=== PATIENT | female | born 1945 | race Asian ===

== ENCOUNTER 2017-05-27 03:10 | Emergency (ER) | payer OTHER ==
[~2017-05-27] VITALS: Ht 152.4 cm; Wt 47.8 kg
[~2017-05-27 03:10] MED LIST: AMLO-512 PO; ATEN100T PO; GLIP5TAB3; HYDR25TA PO; LISI40TA4 PO; METF-515 PO; MULT1TAB70 PO; NYST5S PO
[2017-05-27] MEDS ORDERED: MECL-129 PO (03:24)
[2017-05-27] MEDS ORDERED: LORazepam 2 MG/ML VIAL IVP ONE (03:30)
[2017-05-27] MEDS ORDERED: SODIUM CHLORIDE 0.9% 1,000 ML IV ONE (03:30)
[2017-05-27 04:39] LABS: BASOPHILS % (AUTO) 0.4 % (0.0-2.0); EOSINOPHILS % (AUTO) 1.5 % (1.0-6.0); HEMATOCRIT 37.1 % (36-46); HEMOGLOBIN 12.5 g/dL (12.0-16.0); LYMPHOCYTES # (AUTO) 1.9 K/uL (1.0-4.8); LYMPHOCYTES % (AUTO) 13.1 % (22.0-44.0); MEAN CORPUSCULAR HEMOGLOBIN 28.4 pg (26.0-34.0); MEAN CORPUSCULAR HGB CONC 33.7 G/dL (31.0-37.0); MEAN CORPUSCULAR VOLUME 84 fL (80-100); MONOCYTES # (AUTO) 0.6 K/uL (0.1-1.0); MONOCYTES % (AUTO) 4.1 % (2.0-9.0); NEUTROPHILS # (AUTO) 11.7 K/uL (1.8-7.7); NEUTROPHILS % (AUTO) 80.9 % (40.0-70.0); PLATELET COUNT (AUTO) 249 K/uL (150-450); RED BLOOD CELL COUNT(AUTO) 4.41 MIL/uL (4.00-5.20); RED CELL DISTRIBUTION WIDTH 13.1 % (11.5-14.5)
[2017-05-27 05:00] LABS: CALCIUM, TOTAL 9.4 mg/dL (8.8-10.5); CREATININE 1.49 mg/dL (0.60-1.30); POTASSIUM 3.7 mmol/L (3.5-5.1)
[2017-05-27 06:02] VITALS: BP 144/71
== END 2017-05-27 06:11 | disposition home or self-care (01) ==
LOC: EMS 03:11
DX: H81.399 Other peripheral vertigo, unspecified ear (principal); E11.9 Type 2 diabetes mellitus without complications; E78.00 Pure hypercholesterolemia, unspecified; I10 Essential (primary) hypertension; R11.2 Nausea with vomiting, unspecified; Z79.84 Long term (current) use of oral hypoglycemic drugs
CPT/HCPCS: 36415; 80048; 85025; 96361; 96374; 99284; J2060; J7030

== ENCOUNTER 2021-10-07 21:09 | Inpatient (IN) | payer MEDICARE, OTHER ==
[~2021-10-07] VITALS: Ht 152.4 cm; Wt 63.5 kg
[~2021-10-07 21:09] MED LIST changes: +AMLO-258 PO; -AMLO-512 PO; -ATEN100T PO; +ATEN100T92 PO; -HYDR25TA PO; +HYDR25TA2 PO; -LISI40TA4 PO; +LISI40TA9 PO; +MECL-129 PO; -NYST5S PO
[2021-10-07] MEDS ORDERED: LABETALOL HCL 5 MG/ML 20 ML VIAL IVP ONE ×2 (21:30→22:45)
[2021-10-07 21:36] LABS: GLUCOMETER DEV NAME(LOC) ERT.5; GLUCOSE,POINT OF CARE 117 MG/DL (70-110)
[2021-10-07 21:41] LABS: BASOPHILS % (AUTO) 0.4 % (0.0-2.0); EOSINOPHILS % (AUTO) 0.9 % (1.0-6.0); HEMATOCRIT 37.6 % (36-46); HEMOGLOBIN 12.8 g/dL (12.0-16.0); LYMPHOCYTES # (AUTO) 2.3 K/uL (1.0-4.8); LYMPHOCYTES % (AUTO) 24.6 % (22.0-44.0); MEAN CORPUSCULAR HEMOGLOBIN 28.8 pg (26.0-34.0); MEAN CORPUSCULAR HGB CONC 34.1 G/dL (31.0-37.0); MEAN CORPUSCULAR VOLUME 85 fL (80-100); MONOCYTES # (AUTO) 0.5 K/uL (0.1-1.0); MONOCYTES % (AUTO) 5.1 % (2.0-9.0); NEUTROPHILS # (AUTO) 6.5 K/uL (1.8-7.7); PLATELET COUNT (AUTO) 266 K/uL (150-450); RED BLOOD CELL COUNT(AUTO) 4.45 MIL/uL (4.00-5.20); RED CELL DISTRIBUTION WIDTH 12.9 % (11.5-14.5)
[2021-10-07 21:49] LABS: CALCIUM, TOTAL 9.5 mg/dL (8.8-10.5); CREATININE 2.09 mg/dL (0.60-1.30); POTASSIUM 3.7 mmol/L (3.5-5.1)
[2021-10-07 21:52] LABS: PROTHROMBIN TIME 10.8 SEC (9.4-11.6)
[2021-10-07 22:15] LABS: ALBUMIN 3.7 g/dL (3.4-5.0); BILIRUBIN,TOTAL 0.3 mg/dL (0.1-1.0); TOTAL PROTEIN, SERUM 8.1 g/dL (6.4-8.2)
[2021-10-07] MEDS ORDERED: SODIUM CHLORIDE 0.9% 500 ML IV ONE (23:00)
[2021-10-08 00:56] LABS: APPEARANCE,URINE CLEAR (CLEAR); BILIRUBIN,URINE NEGATIVE (NEGATIVE); GLUCOSE, URINE (UA) NEGATIVE (NEGATIVE); KETONES,URINE NEGATIVE (NEGATIVE); LEUKOCYTE ESTERASE ,URINE TRACE (NEGATIVE); NITRATE,URINE NEGATIVE (NEGATIVE); OCCULT BLOOD,URINE TRACE (NEGATIVE); PROTEIN,URINE 300-600,SEE CONFIRM mg/dL (NEGATIVE); SPECIFIC GRAVITIY, URINE 1.011 (1.003-1.030); UROBILINOGEN,URINE <=1.0 mg/dL (<=1.0)
[2021-10-08 01:07] LABS: SULFOSALICYLIC ACID,URINE 4+ (Negative)
[2021-10-08 01:08] LABS: BACTERIA,URINE Many /HPF (None Seen); RBC,URINE 0-2 /HPF (0-2); SQUAMOUS EPITHELIAL CELL,UR Few /LPF (None Seen)
[2021-10-08] MEDS ORDERED: ACETAMINOPHEN 325 MG TABLET PO ONE (01:30)
[2021-10-08] MEDS ORDERED: LABETALOL HCL 5 MG/ML 20 ML VIAL IVP ONE (01:30)
[2021-10-08] MEDS ORDERED: ATENOLOL 50 MG TABLET PO ONE (03:00)
[2021-10-08] MEDS ORDERED: METOCLOPRAMIDE HCL 5 MG/ML 2 ML VIAL IVP PRN (04:30)
[2021-10-08] MEDS ORDERED: ONDANSETRON HCL 4 MG/2 ML VIAL IVP PRN (04:30)
[2021-10-08] MEDS ORDERED: NiCARDipine HCL 25 MG in SODIUM CHLORIDE 0.9% 240 ML IV PRN (04:30)
[2021-10-08] MEDS ORDERED: DEXTROSE 50%-WATER 25 GM/50 ML SYRINGE IVP PRN (04:30)
[2021-10-08 04:38] LABS: CREATININE,URINE RANDOM 67.5 mg/dL (30.0-125.0)
[2021-10-08] MEDS ORDERED: MECLIZINE HCL 25 MG TABLET PO PRN (05:00)
[2021-10-08 05:13] LABS: COVID AG,FIA SOURCE NASAL SWAB
[2021-10-08] MEDS: INSULIN LISPRO 100 UNITS/ML SQ PRN ×3 (06:14→20:58)
[2021-10-08 07:21] LABS: GLUCOSE,POINT OF CARE 161 MG/DL (70-110)
[2021-10-08 08:00] VITALS: BP 157/90
[2021-10-08] MEDS ORDERED: ATENOLOL 100 MG TABLET PO SCH (10:00)
[2021-10-08] MEDS: AmLODIPine BESYLATE 10 MG TABLET PO SCH (10:22)
[2021-10-08] MEDS: HEPARIN SODIUM,PORCINE 5,000 UNITS/ML VIAL SQ SCH ×3 (10:22→23:57)
[2021-10-08] MEDS ORDERED: MULT-660 PO (11:32)
[2021-10-08] MEDS ORDERED: INSU300I SQ (11:32)
[2021-10-08] MEDS ORDERED: OLME40TA18 PO (11:32)
[2021-10-08] MEDS ORDERED: ASPI-1444 PO (11:32)
[2021-10-08] MEDS ORDERED: LIRA0.6P2 SQ (11:32)
[2021-10-08] MEDS ORDERED: GABA-529 PO (11:32)
[2021-10-08] MEDS ORDERED: MECL-160 PO (11:32)
[2021-10-08] MEDS ORDERED: PRAV40TA4 PO (11:32)
[2021-10-08 12:00] VITALS: BP 163/108
[2021-10-08 12:06] LABS: CREATININE 1.84 mg/dL (0.60-1.30); POTASSIUM 4.1 mmol/L (3.5-5.1)
[2021-10-08 12:16] LABS: GLUCOSE,POINT OF CARE 227 MG/DL (70-110)
[2021-10-08 16:00] VITALS: BP 118/71
[2021-10-08 19:01] LABS: GLUCOSE,POINT OF CARE 139 MG/DL (70-110)
[2021-10-08 20:00] VITALS: BP 132/66
[2021-10-08 22:10] VITALS: BP 157/89
[2021-10-09 00:11] VITALS: BP 138/64
[2021-10-09 04:16] LABS: GLUCOSE,POINT OF CARE 249 MG/DL (70-110)
[2021-10-09 05:22] VITALS: BP 150/65
[2021-10-09 05:52] LABS: BASOPHILS % (AUTO) 0.8 % (0.0-2.0); EOSINOPHILS % (AUTO) 1.2 % (1.0-6.0); HEMOGLOBIN 12.8 g/dL (12.0-16.0); LYMPHOCYTES # (AUTO) 2.9 K/uL (1.0-4.8); LYMPHOCYTES % (AUTO) 29.1 % (22.0-44.0); MEAN CORPUSCULAR HEMOGLOBIN 28.9 pg (26.0-34.0); MEAN CORPUSCULAR HGB CONC 34.7 G/dL (31.0-37.0); MEAN CORPUSCULAR VOLUME 83 fL (80-100); MONOCYTES # (AUTO) 0.6 K/uL (0.1-1.0); MONOCYTES % (AUTO) 5.9 % (2.0-9.0); NEUTROPHILS # (AUTO) 6.3 K/uL (1.8-7.7); PLATELET COUNT (AUTO) 256 K/uL (150-450); RED BLOOD CELL COUNT(AUTO) 4.44 MIL/uL (4.00-5.20)
[2021-10-09 06:09] LABS: CREATININE 1.87 mg/dL (0.60-1.30); MAGNESIUM 1.4 mg/dL (1.80-2.40); POTASSIUM 3.7 mmol/L (3.5-5.1)
[2021-10-09 07:24] VITALS: BP 139/75
[2021-10-09] MEDS: HEPARIN SODIUM,PORCINE 5,000 UNITS/ML VIAL SQ SCH ×2 (08:06→16:30)
[2021-10-09] MEDS: AmLODIPine BESYLATE 10 MG TABLET PO SCH (08:07)
[2021-10-09] MEDS: ACETAMINOPHEN 325 MG TABLET PO PRN ×2 (08:14→14:49)
[2021-10-09 08:41] LABS: GLUCOMETER DEV NAME(LOC) 5N.3; GLUCOSE,POINT OF CARE 115 MG/DL (70-110)
[2021-10-09] MEDS ORDERED: ATENOLOL 100 MG TABLET PO SCH (09:00)
[2021-10-09 11:22] VITALS: BP 123/82
[2021-10-09] MEDS ORDERED: MAGNESIUM SULFATE 2 GM/WATER 50 ML IV ONE (11:30)
[2021-10-09] MEDS: INSULIN LISPRO 100 UNITS/ML SQ PRN (11:39)
[2021-10-09 12:11] LABS: GLUCOMETER DEV NAME(LOC) 5N.1C; GLUCOSE,POINT OF CARE 245 MG/DL (70-110)
[2021-10-09] MEDS ORDERED: SODIUM CHLORIDE 0.9% 100 ML ONE (12:33)
[2021-10-09] MEDS ORDERED: ATEN100T92 PO (14:47)
[2021-10-09] MEDS ORDERED: AMLO-258 PO (14:47)
[2021-10-09 16:14] VITALS: BP 145/59
== END 2021-10-09 16:45 | disposition home or self-care (01) | DRG 305 ==
LOC: EMS 21:09 → ICU 10-08 05:45 → 5S 10-08 22:00
PROVIDERS: ADMIT Internal Medicine; ATTEND Internal Medicine
DX: I16.1 Hypertensive emergency (principal); N17.9 Acute kidney failure, unspecified; E87.1 Hypo-osmolality and hyponatremia; N25.81 Secondary hyperparathyroidism of renal origin; I12.9 Hypertensive chronic kidney disease with stage 1 through stage 4 chronic kidney disease, or unspecified chronic kidney disease; E11.22 Type 2 diabetes mellitus with diabetic chronic kidney disease; E11.65 Type 2 diabetes mellitus with hyperglycemia; E83.42 Hypomagnesemia; E78.00 Pure hypercholesterolemia, unspecified; E87.5 Hyperkalemia; Z20.822 Contact with and (suspected) exposure to COVID-19; N18.30 Chronic kidney disease, stage 3 unspecified; Z79.899 Other long term (current) drug therapy; Z83.3 Family history of diabetes mellitus; Z87.19 Personal history of other diseases of the digestive system
CPT/HCPCS: 70450; 70551; 71045; 80048; 80053; 81001; 81002; 82550; 82570; 82962; 83735; 84300; 84484; 85025; 85610; 85730; 87081; 87086; 93005; 93306; 99285; J1644; J3475; J3490; J7040; J7050; 36415-L1; 36415-TC; 87077

== ENCOUNTER 2021-10-13 18:03 | Emergency (ER) | payer MEDICARE, OTHER ==
[~2021-10-13] VITALS: Ht 152.4 cm; Wt 63.0 kg
[~2021-10-13 18:03] MED LIST changes: +ASPI-1444 PO; +GABA-529 PO; -GLIP5TAB3; -HYDR25TA2 PO; +INSU300I SQ; +LIRA0.6P2 SQ; -LISI40TA9 PO; -MECL-129 PO; +MECL-160 PO; -METF-515 PO; +MULT-660 PO; -MULT1TAB70 PO; +OLME40TA18 PO; +PRAV40TA4 PO
[2021-10-13] MEDS ORDERED: 0.9% SODIUM CHLORIDE 10 ML SYRINGE IVP PRN (18:45)
[2021-10-13] MEDS ORDERED: ACETAMINOPHEN 500 MG TABLET PO ONE (19:15)
[2021-10-13] MEDS ORDERED: CefTRIAXone 1 GM/DEXTROSE 50 ML IV ONE (19:15)
[2021-10-13 19:32] LABS: APPEARANCE,URINE CLEAR (CLEAR); BILIRUBIN,URINE NEGATIVE (NEGATIVE); GLUCOSE, URINE (UA) NEGATIVE (NEGATIVE); KETONES,URINE NEGATIVE (NEGATIVE); LEUKOCYTE ESTERASE ,URINE MODERATE (NEGATIVE); NITRATE,URINE NEGATIVE (NEGATIVE); OCCULT BLOOD,URINE TRACE (NEGATIVE); PROTEIN,URINE 300-600,SEE CONFIRM mg/dL (NEGATIVE); SPECIFIC GRAVITIY, URINE 1.011 (1.003-1.030); UROBILINOGEN,URINE <=1.0 mg/dL (<=1.0)
[2021-10-13 19:59] LABS: COVID AG,FIA SOURCE NASAL SWAB
[2021-10-13 20:06] LABS: BASOPHILS % (AUTO) 0.4 % (0.0-2.0); EOSINOPHILS % (AUTO) 0.2 % (1.0-6.0); HEMATOCRIT 34.3 % (36-46); HEMOGLOBIN 11.7 g/dL (12.0-16.0); LYMPHOCYTES # (AUTO) 1.9 K/uL (1.0-4.8); MEAN CORPUSCULAR HEMOGLOBIN 28.6 pg (26.0-34.0); MEAN CORPUSCULAR HGB CONC 34.1 G/dL (31.0-37.0); MEAN CORPUSCULAR VOLUME 84 fL (80-100); MONOCYTES # (AUTO) 0.9 K/uL (0.1-1.0); NEUTROPHILS # (AUTO) 12.7 K/uL (1.8-7.7); NEUTROPHILS % (AUTO) 81.4 % (40.0-70.0); PLATELET COUNT (AUTO) 280 K/uL (150-450); RED CELL DISTRIBUTION WIDTH 12.9 % (11.5-14.5)
[2021-10-13 20:15] LABS: SULFOSALICYLIC ACID,URINE 3+ (Negative)
[2021-10-13 20:16] LABS: BACTERIA,URINE Many /HPF (None Seen); RBC,URINE 0-2 /HPF (0-2)
[2021-10-13 20:17] LABS: CALCIUM, TOTAL 9.3 mg/dL (8.8-10.5); CREATININE 2.12 mg/dL (0.60-1.30); POTASSIUM 4.4 mmol/L (3.5-5.1)
[2021-10-13 20:23] LABS: ALBUMIN 2.9 g/dL (3.4-5.0); BILIRUBIN,TOTAL 0.4 mg/dL (0.1-1.0)
[2021-10-13 20:25] VITALS: BP 178/84
[2021-10-13 20:26] LABS: LACTIC ACID 0.8 mmol/L (0.4-2.0)
[2021-10-13 20:28] LABS: PROTHROMBIN TIME 10.6 SEC (9.4-11.6)
[2021-10-13 20:44] LABS: INFLUENZA TYPE A NEGATIVE FOR TYPE A (NEGATIVE); INFLUENZA TYPE B NEGATIVE FOR TYPE B (NEGATIVE)
[2021-10-13] MEDS ORDERED: NITR-75 PO (21:16)
[2021-10-13] MEDS ORDERED: IBUPROFEN 600 MG TABLET PO ONE (21:45)
== END 2021-10-13 22:37 | disposition home or self-care (01) ==
LOC: EMS 18:03
DX: N39.0 Urinary tract infection, site not specified (principal); I12.9 Hypertensive chronic kidney disease with stage 1 through stage 4 chronic kidney disease, or unspecified chronic kidney disease; N18.9 Chronic kidney disease, unspecified; E11.9 Type 2 diabetes mellitus without complications; E78.00 Pure hypercholesterolemia, unspecified; Z86.010 Personal history of colon polyps; Z86.79 Personal history of other diseases of the circulatory system; Z20.822 Contact with and (suspected) exposure to COVID-19
CPT/HCPCS: 99285; 96365; 71045; 87426; 80053; 81001; 83605; 85025; 85610; 87040; 87804; 36415; 87086; 87077; 93005; J0696; 81002